=== PATIENT | female | born 1970 | race Caucasian/White ===

== ENCOUNTER → 2024-05-16 11:47 | Outpatient (REF) | payer BC, SELFPAY | LOC: HWWDC 11:47 | PROVIDERS: ATTENDING PHYSICIAN Obstetrics & Gynecology Gynecology; FAMILY PHYSICIAN Family Medicine | DX: Z12.31 Encounter for screening mammogram for malignant neoplasm of breast (principal) | CPT/HCPCS: 77063; 77067 ==

== ENCOUNTER 2025-04-11 10:08 | Outpatient (RCR) | payer BC, SELFPAY | END 2025-04-11 23:59 | disposition home or self-care (01) | LOC: RPT 10:08 | PROVIDERS: ATTENDING PHYSICIAN Specialist; FAMILY PHYSICIAN Family Medicine | DX: I69.253 Hemiplegia and hemiparesis following other nontraumatic intracranial hemorrhage affecting right non-dominant side (principal); I69.298 Other sequelae of other nontraumatic intracranial hemorrhage; Z73.6 Limitation of activities due to disability; R26.89 Other abnormalities of gait and mobility | CPT/HCPCS: 97110; 97112; 97163; 97530 ==

== ENCOUNTER 2025-05-15 07:33 | Outpatient (RCR) | payer BC, SELFPAY | END 2025-05-15 23:59 | disposition home or self-care (01) | LOC: RPT 07:33 | PROVIDERS: ATTENDING PHYSICIAN Specialist; FAMILY PHYSICIAN Family Medicine | DX: I69.253 Hemiplegia and hemiparesis following other nontraumatic intracranial hemorrhage affecting right non-dominant side (principal); I69.298 Other sequelae of other nontraumatic intracranial hemorrhage; Z73.6 Limitation of activities due to disability; R26.89 Other abnormalities of gait and mobility | CPT/HCPCS: 97110; 97112; 97116 ==